=== PATIENT | male | born 1980 | race Caucasian/White ===

== ENCOUNTER 2016-04-10 11:47 | Emergency (ER) | payer MEDICAID, OTHER ==
[~2016-04-10] VITALS: Ht 180.3 cm; Wt 86.2 kg
[2016-04-10] MEDS ORDERED: SODIUM CHLORIDE 0.9% 1,000 ML IV ONE (12:46)
[2016-04-10 13:55] LABS: Albumin 3.6 g/dL (3.4-5.0); BUN/Creatinine Ratio 4.7; Bilirubin, Total 0.3 mg/dL (0.2-1.0); Calcium 9.3 mg/dL (8.5-10.1); Magnesium 2.4 mg/dL (1.6-2.6); Potassium 3.9 mmol/L (3.5-5.1); Total Protein 7.8 g/dL (6.4-8.2)
[2016-04-10 14:47] VITALS: BP 133/90
[2016-04-10 14:56] LABS: Urine RBC None Seen /hpf (0 - 3)
[2016-04-10 15:38] LABS: Urine Bilirubin Negative (Negative); Urine Blood Negative /uL (Negative); Urine Color Yellow (Yellow); Urine Glucose Normal (Normal); Urine Ketone Negative (Negative); Urine Mucus FEW (None Seen); Urine Nitrite Negative (Negative); Urine Urobilinogen Normal (Negative)
[2016-04-10 15:45] LABS: Basophils # (auto) 0.1 uL; Basophils % (auto) 0.7 % (0.0-2.0); Eosinophils # (auto) 0.1 uL; Eosinophils % (auto) 1.5 % (0.0-7.0); Hematocrit 49.2 % (41.0-53.0); Hemoglobin 16.1 g/dL (13.5-17.5); Lymphocytes # (auto) 1.4 uL; Lymphocytes % (auto) 15.3 % (10.0-50.0); Mean Corpuscular Hgb Conc. 32.7 g/dL (32.0-36.0); Monocytes # (auto) 0.9 uL; Monocytes % (auto) 9.9 % (0.0-12.0); Neutrophils # (auto) 6.7 uL; Neutrophils % (auto) 72.6 % (37.0-80.0); Platelet Count (auto) 415 10^3/uL (140-450); Red Cell Distribution Width 12.1 % (11.6-16.0); White Blood Cell 9.3 10^3/uL (4.4-10.8)
== END 2016-04-10 16:40 | disposition home or self-care (01) ==
LOC: ER 12:03 → EDBD 12:03 → ER 16:40
DX: R04.2 Hemoptysis (principal); L40.9 Psoriasis, unspecified; J03.90 Acute tonsillitis, unspecified; L02.429 Furuncle of limb, unspecified; F10.10 Alcohol abuse, uncomplicated
CPT/HCPCS: 36415; 71020; 80053; 81001; 83735; 85025; 96360; 99285; J7030